=== PATIENT | female | born 1930 | race Caucasian/White ===

== ENCOUNTER 2017-09-19 12:22 | Inpatient (IN) | payer MEDICARE, BC ==
--- NOTE | 2017-09-19 12:46 | ED ---
Neuro HPI - General Chief Complaint: Neuro Symptoms/Deficit Stated Complaint: Hand Numbness-poss stroke on tuesday Time Seen by Provider: 09/19/17 12:34 Source: patient, RN notes reviewed Mode of arrival: wheelchair Limitations: no limitations - History of Present Illness Is the patient presenting with stroke symptoms?: Yes Initial Comments: This is a 86-year-old female who presents with complaints of the onset of left upper extremity weakness 3 days ago. She states she still has some numbness to the left hand especially when she tries to reach for something. This morning she did have a right orbital headache which went away after taking aspirin. She 's had no fevers chills nausea vomiting sweats no trauma no prior history of strokes no palpitations or other complaints of medical issues. She does have high blood pressureher medication. - Related Data Home Medications: Home Medications Medication Instructions Recorded Confirmed Aspirin EC [Ecotrin Low Dose] 81 mg PO DAILY 09/19/17 09/19/17 Atenolol [Tenormin] 50 mg PO DAILY 09/19/17 09/19/17 Atorvastatin [Lipitor] 20 mg PO HS 09/19/17 09/19/17 Calcium Polycarbophil [Fibercon] 625 mg PO DAILY 09/19/17 09/19/17 Losartan/Hydrochlorothiazide 0.5 tab PO DAILY 09/19/17 09/19/17 [Losartan-Hctz 100-25 mg Tab] [place]-3 Fatty Acids/Fish Oil [Fish 1 cap PO DAILY 09/19/17 09/19/17 Oil 1,000 mg Softgel] Omeprazole 20 mg PO DAILY 09/19/17 09/19/17 traMADol HCL [Ultram] 50 mg PO Q6HR PRN 09/19/17 09/19/17 Allergies/Adverse Reactions: Allergies Allergy/AdvReac Type Severity Reaction Status Date / Time No Known Allergies Allergy Verified 09/19/17 13:41 Review of Systems ROS Statement: Those systems with pertinent positive or pertinent negative responses have been documented in the HPI. ROS Other: All systems not noted in ROS Statement are negative. General Exam - General Exam Comments Initial Comments: This a well-developed well-nourished awake alert oriented 3 female Limitations: no limitations General appearance: alert, in no apparent distress Head exam: Present: atraumatic, normocephalic, normal inspection Eye exam: Present: normal appearance, PERRL, EOMI. Absent: scleral icterus, conjunctival injection, periorbital swelling ENT exam: Present: normal exam, mucous membranes moist Neck exam: Present: normal inspection. Absent: tenderness, meningismus, lymphadenopathy Respiratory exam: Present: normal lung sounds bilaterally. Absent: respiratory distress, wheezes, rales, rhonchi, stridor Cardiovascular Exam: Present: regular rate, normal rhythm, normal heart sounds. Absent: systolic murmur, diastolic murmur, rubs, gallop, clicks GI/Abdominal exam: Present: soft, normal bowel sounds. Absent: distended, tenderness, guarding, rebound, rigid Extremities exam: Present: normal inspection, normal capillary refill, other ( Some past pointing noted on the left upper extremity). 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 Absent: rash Stroke MDM - Lab Data Result diagrams: 09/19/17 12:50 09/19/17 12:50 Lab Results 09/19/17 09/19/17 09/19/17 Range/Units 12:50 12:50 12:50 WBC 6.1 (3.8-10.6) k/uL RBC 4.25 (3.80-5.40) m/uL Hgb 13.5 (11.4-16.0) gm/dL Hct 40.3 (34.0-46.0) % MCV 94.8 (80.0-100.0) fL MCH 31.8 (25.0-35.0) pg MCHC 33.6 (31.0-37.0) g/dL RDW 13.0 (11.5-15.5) % Plt Count 184 (150-450) k/uL Neutrophils % 62 % Lymphocytes % 25 % Monocytes % 8 % Eosinophils % 2 % Basophils % 0 % Neutrophils # 3.7 (1.3-7.7) k/uL Lymphocytes # 1.5 (1.0-4.8) k/uL Monocytes # 0.5 (0-1.0) k/uL Eosinophils # 0.1 (0-0.7) k/uL Basophils # 0.0 (0-0.2) k/uL PT (9.0-12.0) sec INR (<1.2) APTT (22.0-30.0) sec Sodium 144 (137-145) mmol/L Potassium 4.2 (3.5-5.1) mmol/L Chloride 107 (98-107) mmol/L Carbon Dioxide 24 (22-30) mmol/L Anion Gap 13 mmol/L BUN 20 H (7-17) mg/dL Creatinine 0.83 (0.52-1.04) mg/dL Est GFR (CKD-EPI)AfAm 75 (>60 ml/min/1.73 sqM) Est GFR (CKD-EPI)NonAf 65 (>60 ml/min/1.73 sqM) Glucose 98 (74-99) mg/dL Calcium 9.2 (8.4-10.2) mg/dL Total Bilirubin 1.3 (0.2-1.3) mg/dL AST 26 (14-36) U/L ALT 29 (9-52) U/L Alkaline Phosphatase 81 (38-126) U/L Total Creatine Kinase 115 (30-135) U/L CK-MB (CK-2) 1.5 (0.0-2.4) ng/mL CK-MB (CK-2) Rel Index 1.3 Troponin I <0.012 (0.000-0.034) ng/mL Total Protein 6.3 (6.3-8.2) g/dL Albumin 4.0 (3.5-5.0) g/dL 09/19/17 Range/Units 12:50 WBC (3.8-10.6) k/uL RBC (3.80-5.40) m/uL Hgb (11.4-16.0) gm/dL Hct (34.0-46.0) % MCV (80.0-100.0) fL MCH (25.0-35.0) pg MCHC (31.0-37.0) g/dL RDW (11.5-15.5) % Plt Count (150-450) k/uL Neutrophils % % Lymphocytes % % Monocytes % % Eosinophils % % Basophils % % Neutrophils # (1.3-7.7) k/uL Lymphocytes # (1.0-4.8) k/uL Monocytes # (0-1.0) k/uL Eosinophils # (0-0.7) k/uL Basophils # (0-0.2) k/uL PT 10.3 (9.0-12.0) sec INR 1.1 (<1.2) APTT 24.8 (22.0-30.0) sec Sodium (137-145) mmol/L Potassium (3.5-5.1) mmol/L Chloride (98-107) mmol/L Carbon Dioxide (22-30) mmol/L Anion Gap mmol/L BUN (7-17) mg/dL Creatinine (0.52-1.04) mg/dL Est GFR (CKD-EPI)AfAm (>60 ml/min/1.73 sqM) Est GFR (CKD-EPI)NonAf (>60 ml/min/1.73 sqM) Glucose (74-99) mg/dL Calcium (8.4-10.2) mg/dL Total Bilirubin (0.2-1.3) mg/dL AST (14-36) U/L ALT (9-52) U/L Alkaline Phosphatase (38-126) U/L Total Creatine Kinase (30-135) U/L CK-MB (CK-2) (0.0-2.4) ng/mL CK-MB (CK-2) Rel Index Troponin I (0.000-0.034) ng/mL Total Protein (6.3-8.2) g/dL Albumin (3.5-5.0) g/dL - NIH Stroke Scale 1a. Level of Consciousness: (0) alert 1b. LOC Questions: (0) answers correctly 1c. LOC Commands: (0) performs tasks correctly 2. Best Gaze: (0) normal 3. Visual: (0) no visual loss 4. Facial Palsy: (0) normal symmetrical movement 5a. Motor Arm Left: (0) no drift 5b. Motor Arm Right: (0) no drift 6a. Motor Leg Left: (0) no drift 6b. Motor Leg Right: (0) no drift 7. Limb Ataxia: (1) present 1 limb 8. Sensory: (0) normal 9. Best Language: (0) no aphasia 10. Dysarthria: (0) normal 11. Extinction/Inattention: (0) no abnormality - Medical Decision Making The patient remains minimally symptomatic the presentation consistent with a CVA she has had some ataxia to left upper extremity I did discuss the case with Dr. Ralph awad but the patient will be admitted for evaluation by neurology - EKG Data -: EKG Interpreted by [facility] EKG shows normal: sinus rhythm (Sinus bradycardia rate of 50. Interval 170 QRS duration 86 QT since QTC of 464/423 minimal voltage criteria for LVH nonspecific ST configuration) Past Medical History Past Medical History: Coronary Artery Disease (CAD), Hypertension History of Any Multi-Drug Resistant Organisms: None Reported Past Surgical History: Heart Catheterization With Stent, Joint Replacement Additional Past Surgical History / Comment(s): bilateral knee Past Psychological History: No Psychological Hx Reported Smoking Status: Never smoker Past Alcohol Use History: None Reported Past Drug Use History: None Reported Course Vital Signs 09/19/17 09/19/17 09/19/17 12:39 13:56 14:51 Temperature 97.7 F Pulse Rate 55 L 55 L 50 L Respiratory 20 16 16 Rate Blood Pressure 225/121 198/82 199/80 O2 Sat by Pulse 96 100 99 Oximetry Disposition Clinical Impression: Cerebrovascular accident Disposition: ADMITTED IP TO THIS HOSP Condition: Stable Referrals: Jatin Mcnair MD [Primary Care Provider] - 1-2 days
[2017-09-19 13:20] LABS: Basophils % (A) 0 %; Eosinophils # (A) 0.1 k/uL (0-0.7); Eosinophils % (A) 2 %; HCT 40.3 % (34.0-46.0); HGB 13.5 gm/dL (11.4-16.0); Lymphocytes # (A) 1.5 k/uL (1.0-4.8); Lymphocytes % (A) 25 %; MCH 31.8 pg (25.0-35.0); MCHC 33.6 g/dL (31.0-37.0); MCV 94.8 fL (80.0-100.0); Mean Platelet Volume 7.5; Monocytes # (A) 0.5 k/uL (0-1.0); Monocytes % (A) 8 %; Neutrophils # (A) 3.7 k/uL (1.3-7.7); Neutrophils % (A) 62 %; Platelet Count 184 k/uL (150-450); RBC 4.25 m/uL (3.80-5.40); WBC 6.1 k/uL (3.8-10.6)
--- NOTE | 2017-09-19 13:20 | CT ---
EXAMINATION TYPE: CT brain wo con for TPA DATE OF EXAM: 09/19/2017 HISTORY: Patient complains of left arm numbness. CT DLP: 769.3 mGycm. Automated Exposure Control for Dose Reduction was Utilized. TECHNIQUE: CT scan of the head is performed without contrast. COMPARISON: None. FINDINGS: There is no acute intracranial hemorrhage or midline shift identified. There is diffuse v entricular and sulcal prominence consistent with diffuse age-related cerebral atrophy. There is low- attenuation in the periventricular white matter consistent with chronic small vessel ischemic change. The globes are intact and the visualized sinuses are clear. IMPRESSION: No acute intracranial hemorrhage or midline shift. There is mild to moderate diffuse ag e-related cerebral atrophy and chronic small vessel ischemic change noted.
--- NOTE | 2017-09-19 13:25 | XR ---
EXAMINATION TYPE: XR chest 2V DATE OF EXAM: 09/19/2017 COMPARISON: 01/10/2012 INDICATION: Altered mental status TECHNIQUE: Frontal and lateral views of the chest are obtained. FINDINGS: The heart size is upper limits of normal. The pulmonary vasculature is normal. The lungs are clear. IMPRESSION: 1. No acute pulmonary process.
[2017-09-19 13:30] LABS: Calcium 9.2 mg/dL (8.4-10.2); Potassium 4.2 mmol/L (3.5-5.1); Total Bilirubin 1.3 mg/dL (0.2-1.3); Total Protein 6.3 g/dL (6.3-8.2)
[2017-09-19 13:31] LABS: INR 1.1 (<1.2); Partial Thromboplastin Time 24.8 sec (22.0-30.0); Prothrombin Time 10.3 sec (9.0-12.0)
[2017-09-19 13:40] LABS: Creatine Kinase 115 U/L (30-135)
[2017-09-19 13:53] LABS: Creatine Kinase MB 1.5 ng/mL (0.0-2.4); Troponin I <0.012 ng/mL (0.000-0.034)
[2017-09-19] MEDS ORDERED: cloNIDine HCL 0.1 MG TAB PO STA (15:16)
[2017-09-19] MEDS ORDERED: traMADol 50 MG TAB PO PRN (15:37)
--- NOTE | 2017-09-19 15:38 | ED ---
Medical Decision Making - Lab Data Result diagrams: 09/19/17 12:50 09/19/17 12:50 Lab Results 09/19/17 09/19/17 09/19/17 Range/Units 12:50 12:50 12:50 WBC 6.1 (3.8-10.6) k/uL RBC 4.25 (3.80-5.40) m/uL Hgb 13.5 (11.4-16.0) gm/dL Hct 40.3 (34.0-46.0) % MCV 94.8 (80.0-100.0) fL MCH 31.8 (25.0-35.0) pg MCHC 33.6 (31.0-37.0) g/dL RDW 13.0 (11.5-15.5) % Plt Count 184 (150-450) k/uL Neutrophils % 62 % Lymphocytes % 25 % Monocytes % 8 % Eosinophils % 2 % Basophils % 0 % Neutrophils # 3.7 (1.3-7.7) k/uL Lymphocytes # 1.5 (1.0-4.8) k/uL Monocytes # 0.5 (0-1.0) k/uL Eosinophils # 0.1 (0-0.7) k/uL Basophils # 0.0 (0-0.2) k/uL PT (9.0-12.0) sec INR (<1.2) APTT (22.0-30.0) sec Sodium 144 (137-145) mmol/L Potassium 4.2 (3.5-5.1) mmol/L Chloride 107 (98-107) mmol/L Carbon Dioxide 24 (22-30) mmol/L Anion Gap 13 mmol/L BUN 20 H (7-17) mg/dL Creatinine 0.83 (0.52-1.04) mg/dL Est GFR (CKD-EPI)AfAm 75 (>60 ml/min/1.73 sqM) Est GFR (CKD-EPI)NonAf 65 (>60 ml/min/1.73 sqM) Glucose 98 (74-99) mg/dL Calcium 9.2 (8.4-10.2) mg/dL Total Bilirubin 1.3 (0.2-1.3) mg/dL AST 26 (14-36) U/L ALT 29 (9-52) U/L Alkaline Phosphatase 81 (38-126) U/L Total Creatine Kinase 115 (30-135) U/L CK-MB (CK-2) 1.5 (0.0-2.4) ng/mL CK-MB (CK-2) Rel Index 1.3 Troponin I <0.012 (0.000-0.034) ng/mL Total Protein 6.3 (6.3-8.2) g/dL Albumin 4.0 (3.5-5.0) g/dL 09/19/17 Range/Units 12:50 WBC (3.8-10.6) k/uL RBC (3.80-5.40) m/uL Hgb (11.4-16.0) gm/dL Hct (34.0-46.0) % MCV (80.0-100.0) fL MCH (25.0-35.0) pg MCHC (31.0-37.0) g/dL RDW (11.5-15.5) % Plt Count (150-450) k/uL Neutrophils % % Lymphocytes % % Monocytes % % Eosinophils % % Basophils % % Neutrophils # (1.3-7.7) k/uL Lymphocytes # (1.0-4.8) k/uL Monocytes # (0-1.0) k/uL Eosinophils # (0-0.7) k/uL Basophils # (0-0.2) k/uL PT 10.3 (9.0-12.0) sec INR 1.1 (<1.2) APTT 24.8 (22.0-30.0) sec Sodium (137-145) mmol/L Potassium (3.5-5.1) mmol/L Chloride (98-107) mmol/L Carbon Dioxide (22-30) mmol/L Anion Gap mmol/L BUN (7-17) mg/dL Creatinine (0.52-1.04) mg/dL Est GFR (CKD-EPI)AfAm (>60 ml/min/1.73 sqM) Est GFR (CKD-EPI)NonAf (>60 ml/min/1.73 sqM) Glucose (74-99) mg/dL Calcium (8.4-10.2) mg/dL Total Bilirubin (0.2-1.3) mg/dL AST (14-36) U/L ALT (9-52) U/L Alkaline Phosphatase (38-126) U/L Total Creatine Kinase (30-135) U/L CK-MB (CK-2) (0.0-2.4) ng/mL CK-MB (CK-2) Rel Index Troponin I (0.000-0.034) ng/mL Total Protein (6.3-8.2) g/dL Albumin (3.5-5.0) g/dL Disposition Clinical Impression: Cerebrovascular accident, Hypertension Disposition: ADMITTED IP TO THIS HOSP Condition: Stable Referrals: Jatin Mcnair MD [Primary Care Provider] - 1-2 days
[2017-09-19] MEDS ORDERED: SODIUM CHLORIDE 0.9% 1,000 ML IV SCH (15:45)
[2017-09-19] MEDS ORDERED: PNEUMOCOCCAL VACC-PNEUMOVAX 23 25 MCG/0.5 ML VIAL IM ONE (16:59)
--- NOTE | 2017-09-19 18:37 | US ---
EXAMINATION TYPE: US carotid duplex BILAT DATE OF EXAM: 09/19/2017 COMPARISON: NONE CLINICAL HISTORY: Stenosis. Left arm numbness EXAM MEASUREMENTS: RIGHT: Peak Systolic Velocity (PSV) cm/sec ----- Right CCA: 42.1 ----- Right ICA: 165.5 ----- Right ECA: 42.9 ICA/CCA ratio: 3.9 RIGHT: End Diastole cm/sec ----- Right CCA: 8.5 ----- Right ICA: 33.6 ----- Right ECA: 0.0 LEFT: Peak Systolic Velocity (PSV) cm/sec ----- Left CCA: 51.0 ----- Left ICA: 76.6 ----- Left ECA: 45.8 ICA/CCA ratio: 1.5 LEFT: End Diastole cm/sec ----- Left CCA: 5.6 ----- Left ICA: 18.5 ----- Left ECA: 0.0 VERTEBRALS (direction of flow): Right Vertebral: Antegrade Left Vertebral: Antegrade Rhythm: Normal Technically difficult study due to deep vessels Bilateral intimal thickening, plaque bilateral bulb and proximal ICA greater on right, elevated veloc ities: right proximal mid and distal ICA, right ICA/CCA ratio 3.9 for 50 to 69% stenosis. IMPRESSION: There is antegrade flow in the vertebral arteries. The images and measurements suggest 7 0% stenosis in the right internal carotid artery and close to 50% stenosis in the left internal carot id artery. Criteria for Assigning % of Stenosis / Diameter reduction (Estimation based on the indirect measurements of the internal carotid artery velocities (ICA PSV). 1. Normal (no stenosis)=ICA PSV < 125 cm/s: ratio < 2.0: ICA EDV<40 cm/s. 2. Less than 50% stenosis=ICA PSV < 125 cm/s: ratio < 2.0: ICA EDV<40 cm/s. 3. 50 to 69% stenosis=ICA PSV of 125 to 230 cm/s: ration 2.0 ? 4.0: ICA EDV 40-100 cm/s. 4. Greater than 70% stenosis to near occlusion= ICA PSV > 230 cm/s: ratio > 4.0: ICA EDV > 100 cm/s. 5. Near occlusion= ICA PSV velocities may be low or undetectable: variable ratio and ICA EDV. 6. Total occlusion=unable to detect flow.
[2017-09-19] MEDS: ATORVASTATIN 20 MG TAB PO SCH (20:28)
[2017-09-20 03:23] LABS: Cholesterol 122 mg/dL (<200); HDL Cholesterol 51 mg/dL (40-60); LDL Cholesterol,Calculated 49 mg/dL (0-99); Triglycerides 111 mg/dL (<150)
[2017-09-20] MEDS ORDERED: ASPIRIN 81 MG ONE (05:10)
[2017-09-20] MEDS: ASPIRIN 81 MG PO SCH (05:14)
[2017-09-20] MEDS: PANTOPRAZOLE 40 MG TABLET PO SCH (05:15)
[2017-09-20] MEDS: CALCIUM POLYCARBOPHIL 625 MG TAB PO SCH (07:52)
[2017-09-20] MEDS: ATENOLOL 50 MG TAB PO SCH (07:53)
[2017-09-20] MEDS: CLOPIDOGREL 75 MG TAB PO SCH (07:53)
[2017-09-20] MEDS ORDERED: ASPIRIN 325 MG TAB PO SCH (09:00)
[2017-09-20] MEDS ORDERED: LOSARTAN-HCTZ 50-12.5 MG 1 EACH TAB PO SCH (09:00)
[2017-09-20] MEDS ORDERED: NON-FORMULARY DRUG (Omega-3 Fatty Acids/Fish Oil [Fish Oil 1,000 Mg Softgel] 1 CAP) PO SCH (09:00)
--- NOTE | 2017-09-20 14:01 | CONS ---
DATE OF CONSULTATION: 09/20/2017 This is 86-year-old pleasant female. She had an episode of left upper extremity weakness that happened on Tuesday with complete recovery. She complained of some numbness in the left hand. She also had orbital headache which went away after taking some aspirin. No history of any loss of vision. No history of speech problem. No history of left leg weakness. This is our first episode. The patient had a carotid ultrasound which showed a right has 50 to 69, left-sided 50%, vertebral artery antegrade. The patient had a CT of the brain. No hemorrhage, normal shift, no infarction noted. MEDICAL HISTORY: History of coronary artery disease, hypertension. EXAMINATION: Patient was seen in her room. Her vital signs are stable. NECK: Supple. No bruit appreciated. CHEST: Clear to auscultation. First and second sounds normal. ABDOMEN: Soft. VASCULAR EXAM: Femoral pulses are present. CENTRAL NERVOUS SYSTEM: Oriented to time and place. The patient has motor functions normal bilateral and lower extremities are normal motor function. IMPRESSION: Transient ischemic attack with right carotid stenosis of [address] scan negative for intracranial bleed or hemorrhage. The patient is scheduled to have MRA and we will follow with you. The patient should be on antiplatelet therapy and statin medication. We will follow with you. Thank you very much. MMODL / IJN: [id number] / [id number]
--- NOTE | 2017-09-20 16:24 | P.CONS ---
History of Present Illness - Reason for Consult Consult date: 09/20/17 CVA - Chief Complaint CVA - History of Present Illness This pleasant 86-year-old female evaluated by the neurology service for possible stroke. About 3 days ago she developed left upper extremity weakness and numbness. Did get a little better but persisted. She reported to the [facility] emergency room with no other symptoms except a mild right orbital headache. This resolved after taking some aspirin. Her CT in the emergency room showed no acute intracranial abnormalities. Her carotid Doppler did show anterograde vertebral artery flow. She has 70% right internal carotid artery stenosis of about 50% left sided stenosis. Consult has been placed cardiovascular evaluation. She does have a significant history of atherosclerotic cardiovascular disease. She had stent placement. She takes a baby aspirin a day. Her presenting blood pressure was quite high peaking at 225 /121. This time my exam she is resting comfortably in bed in no acute distress. Her triglycerides were 111 cholesterol 122 LDL 49 and HDL 51 otherwise her labs were unremarkable. 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, chronic back pain History of Any Multi-Drug Resistant Organisms: None Reported Past Surgical History: Heart Catheterization With Stent, Joint Replacement Additional Past Surgical History / Comment(s): bilateral knee replacment, colonoscopy 2011, skin cancer removed from face Past Anesthesia/Blood Transfusion Reactions: No Reported Reaction Additional Past Anesthesia/Blood Transfusion Reaction / Comm: never received any blood Date of Last Stent Placement:: 2011 Smoking Status: Never smoker - Past Family History Mother Family Medical History: Deep Vein Thrombosis (DVT) Additional Family Medical History / Comment(s): thrombophlebitis Father Additional Family Medical History / Comment(s): Father was killed in mva Medications and Allergies Home Medications Medication Instructions Recorded Confirmed Type Aspirin EC [Ecotrin Low Dose] 81 mg PO DAILY 09/19/17 09/19/17 History Atenolol [Tenormin] 50 mg PO DAILY 09/19/17 09/19/17 History Atorvastatin [Lipitor] 20 mg PO HS 09/19/17 09/19/17 History Calcium Polycarbophil [Fibercon] 625 mg PO DAILY 09/19/17 09/19/17 History Losartan/Hydrochlorothiazide 0.5 tab PO DAILY 09/19/17 09/19/17 History [Losartan-Hctz 100-25 mg Tab] [place]-3 Fatty Acids/Fish Oil [Fish 1 cap PO DAILY 09/19/17 09/19/17 History Oil 1,000 mg Softgel] Omeprazole 20 mg PO DAILY 09/19/17 09/19/17 History traMADol HCL [Ultram] 50 mg PO Q6HR PRN 09/19/17 09/19/17 History Allergies Allergy/AdvReac Type Severity Reaction Status Date / Time No Known Allergies Allergy Verified 09/19/17 13:41 Physical Exam Vitals: Vital Signs Temp Pulse Pulse Resp BP BP Pulse Ox 09/20/17 16:00 98.4 F 63 18 141/65 93 L 09/20/17 12:00 98 F 58 L 18 134/64 94 L 09/20/17 08:00 58 L 18 09/20/17 07:59 97.3 F L 58 L 18 150/70 93 L 09/20/17 07:04 92 L 09/20/17 04:15 55 L 17 09/20/17 04:10 98.5 F 50 L 17 165/76 95 09/20/17 00:00 97.8 F 55 L 18 140/66 95 09/19/17 20:20 98.0 F 51 L 18 130/60 95 09/19/17 17:36 97.6 F 62 18 137/62 94 L 09/19/17 16:07 52 L 16 163/72 98 Intake and Output 09/20/17 09/20/17 09/20/17 06:59 14:59 22:59 Intake Total 490 360 Output Total 400 Balance 490 -40 Intake: IV 10 0.9 10 Oral 480 360 Output: Urine 400 Other: Voiding Method Toilet Toilet Toilet # Voids 2 Weight 83.4 kg - Constitutional General appearance: average body habitus, cooperative, no acute distress - EENT Eyes: no abnormal pupil, EOMI, PERRLA, no ptosis ENT: hearing grossly normal - Neck Neck: normal ROM, no rigidity - Respiratory Respiratory: negative: prolonged expiration, prolonged inspiration - Cardiovascular Rhythm: regular - Gastrointestinal General gastrointestinal: no distended, no tenderness - Neurologic The patient is alert awake and oriented 3. Speech and language are normal. There is no facial asymmetry. Strength is 5 minus out of 5 in the left upper extremity and 5 out of 5 in the other extremities. Mild left pronator drift. She has mild to moderate left sided dysmetria. There is no sensory deficit. No tremors or seizures are seen. Cranial nerves II through XII are intact globally. Results CBC & Chem 7: 09/19/17 12:50 09/19/17 12:50 Assessment and Plan (1) Left arm weakness Current Visit: Yes Status: Acute Code(s): R29.898 - OTH SYMPTOMS AND SIGNS INVOLVING THE MUSCULOSKELETAL SYSTEM SNOMED Code(s): 674194255 (2) Dysmetria Current Visit: Yes Status: Acute Code(s): R27.8 - OTHER LACK OF COORDINATION SNOMED Code(s): 15009467 (3) Carotid stenosis Current Visit: Yes Status: Chronic Code(s): I65.29 - OCCLUSION AND STENOSIS OF UNSPECIFIED CAROTID ARTERY SNOMED Code(s): 96908272 (4) Hyperlipidemia Current Visit: Yes Status: Chronic Code(s): E78.5 - HYPERLIPIDEMIA, UNSPECIFIED SNOMED Code(s): 28646836 (5) History of ASCVD Current Visit: Yes Status: Chronic Code(s): Z86.79 - PERSONAL HISTORY OF OTHER DISEASES OF THE CIRCULATORY SYSTEM SNOMED Code(s): 348808150 (6) Cerebrovascular accident Current Visit: Yes Status: Suspected Code(s): I63.9 - CEREBRAL INFARCTION, UNSPECIFIED SNOMED Code(s): 754925660 (7) Hypertension Current Visit: Yes Status: Chronic Code(s): I10 - ESSENTIAL (PRIMARY) HYPERTENSION SNOMED Code(s): 43379194 Plan: This patient has likely suffered an acute ischemic stroke of the right middle cerebral artery distribution. An MRI has been ordered. Recommend physical and occupational therapy continue work with her. Recommend cardiovascular evaluation for her carotid stenosis. Recommend strict blood control. Recommend switching from aspirin to Plavix 75 mg daily. Once we confirmed MRI findings to support the above diagnosis, we will change this medication if not already done. Continue Lipitor at appropriate dose. We will continue to follow and make recommendations based on the above studies. I have performed a history and physical on the above patient. I have reviewed the above note, and agree.
[2017-09-20] MEDS: ATORVASTATIN 20 MG TAB PO SCH (21:06)
[2017-09-20] MEDS ORDERED: LOSARTAN-HCTZ 50-12.5 MG 1 EACH TAB PO STA (21:26)
[2017-09-21] MEDS: PANTOPRAZOLE 40 MG TABLET PO SCH (06:46)
--- NOTE | 2017-09-21 08:01 | P.HPIM ---
History of Present Illness H&P Date: 09/20/17 Chief Complaint: Numbness This is an 86-year-old female patient of Dr. 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 She denies having dizziness, lightheadedness , difficulty with her speech, weakness in her lower extremities. She denies any numbness in her left arm as well. She states that it just drops Patient presented to [facility] emergency center with the above complaints. Patient was hypertensive at 225/121. She was given a dose of Catapres 0.1 mg orally with improvement of her blood pressure and subsequent way resumed on her home medications. CT of the brain showed no acute intracranial hemorrhage or midline shift. Mild to moderate diffuse age-related cerebral atrophy and chronic small vessel ischemic change. Chest x-ray showed no acute process. Carotid duplex revealed 70% stenosis in the right internal carotid and close to 50% in the left internal carotid. Patient was resumed on her home medications, continued on baby aspirin and Plavix added, consult requested with neurology and patient admitted to the selective care unit. PT OT and speech therapies have been ordered. Subsequently, consult placed with Dr. Patricio for carotid stenosis. Review of Systems All systems: negative Constitutional: Denies chills, Denies fatigue, Denies fever, Denies poor appetite, Denies weight loss Eyes: denies blurred vision, denies pain Ears, nose, mouth and throat: Reports headache, Denies dental pain, Denies dysphagia, Denies mouth pain, Denies sore throat Cardiovascular: Denies chest pain, Denies decreased exercise tolerance, Denies dyspnea on exertion, Denies leg edema, Denies lightheadedness, Denies shortness of breath, Denies syncope Respiratory: Denies cough, Denies cough with sputum, Denies dyspnea, Denies excessive sputum, Denies hemoptysis, Denies home oxygen, Denies wheezing Gastrointestinal: Denies abdominal pain, Denies diarrhea, Denies loss of appetite, Denies melena, Denies nausea, Denies vomiting Genitourinary: Denies dysuria, Denies hematuria, Denies urgency, Denies urinary frequency Musculoskeletal: Reports muscle weakness, Denies arm numbness/tingling, Denies frequent falls, Denies gait dysfunction, Denies leg numbness/tingling, Denies myalgias Integumentary: Denies pruritus, Denies rash, Denies wounds Neurological: Reports numbness, Reports weakness, Denies aphasia, Denies change in mentation, Denies change in speech, Denies confusion, Denies convulsions, Denies double vision, Denies gait dysfunction, Denies vertigo Psychiatric: Denies anxiety, Denies depression Endocrine: Denies fatigue, Denies weight change Past Medical History Past Medical History: Coronary Artery Disease (CAD), Cancer, GERD/Reflux, Hyperlipidemia, Hypertension Additional Past Medical History / Comment(s): uti, past broken lt ankle-casted, basal cell skin ca on face, chronic back pain History of Any Multi-Drug Resistant Organisms: None Reported Past Surgical History: Heart Catheterization With Stent, Joint Replacement Additional Past Surgical History / Comment(s): bilateral knee replacment, colonoscopy 2011, skin cancer removed from face Past Anesthesia/Blood Transfusion Reactions: No Reported Reaction Additional Past Anesthesia/Blood Transfusion Reaction / Comment(s): never received any blood Date of Last Stent Placement:: 2011 Smoking Status: Never smoker Additional Past Alcohol Use History / Comment(s): Patient is a lifelong nonsmoker. She denies any marijuana street drug use or alcohol use. - Past Family History Mother Family Medical History: Deep Vein Thrombosis (DVT) Additional Family Medical History / Comment(s): thrombophlebitis. Patient states that mother may have had a stroke in her 40s. Father Additional Family Medical History / Comment(s): Father was killed in mva Brother(s) Additional Family Medical History / Comment(s): Patient has 13 brothers and sisters and all have had diabetes. 2 of from diabetes complications. Patient has 2 daughters with no major medical problems. Medications and Allergies Home Medications Medication Instructions Recorded Confirmed Type Aspirin EC [Ecotrin Low Dose] 81 mg PO DAILY 09/19/17 09/19/17 History Atenolol [Tenormin] 50 mg PO DAILY 09/19/17 09/19/17 History Atorvastatin [Lipitor] 20 mg PO HS 09/19/17 09/19/17 History Calcium Polycarbophil [Fibercon] 625 mg PO DAILY 09/19/17 09/19/17 History Losartan/Hydrochlorothiazide 0.5 tab PO DAILY 09/19/17 09/19/17 History [Losartan-Hctz 100-25 mg Tab] [place]-3 Fatty Acids/Fish Oil [Fish 1 cap PO DAILY 09/19/17 09/19/17 History Oil 1,000 mg Softgel] Omeprazole 20 mg PO DAILY 09/19/17 09/19/17 History traMADol HCL [Ultram] 50 mg PO Q6HR PRN 09/19/17 09/19/17 History Allergies Allergy/AdvReac Type Severity Reaction Status Date / Time No Known Allergies Allergy Verified 09/19/17 13:41 Physical Exam Vitals: Vital Signs Temp Pulse Pulse Resp BP BP Pulse Ox 09/20/17 08:00 58 L 18 09/20/17 07:59 97.3 F L 58 L 18 150/70 93 L 09/20/17 07:04 92 L 09/20/17 04:15 55 L 17 09/20/17 04:10 98.5 F 50 L 17 165/76 95 09/20/17 00:00 97.8 F 55 L 18 140/66 95 09/19/17 20:20 98.0 F 51 L 18 130/60 95 09/19/17 17:36 97.6 F 62 18 137/62 94 L 09/19/17 16:07 52 L 16 163/72 98 09/19/17 14:51 50 L 16 199/80 99 09/19/17 13:56 55 L 16 198/82 100 09/19/17 12:39 97.7 F 55 L 20 225/121 96 Intake and Output 09/19/17 09/20/17 09/20/17 22:59 06:59 14:59 Intake Total 237 490 Balance 237 490 Intake: IV 10 0.9 10 Oral 237 480 Other: Voiding Method Toilet Toilet Toilet # Voids 2 Weight 83.4 kg Gen: This is an obese 86-year-old female. Patient is awake and alert. She is sitting up in bed and appears to be in no acute distress. HEENT: Head is atraumatic, normocephalic. Pupils equal, round. Sclerae is anicteric. NECK: Supple. No JVD. No lymphadenopathy. No thyromegaly. LUNGS: Clear to auscultation. No wheezes or rhonchi. No intercostal retractions. HEART: Regular rate and rhythm. No murmur. ABDOMEN: Soft. Bowel sounds are present. No masses. No tenderness. EXTREMITIES: No pedal edema. No calf tenderness. NEUROLOGICAL: Patient is awake, alert and oriented x3. Cranial nerves 2 through 12 are grossly intact. Left arm drift. Left upper extremity 4/5 strength and 5 /5 on right upper extremity and bilateral lower extremities Results CBC & Chem 7: 09/19/17 12:50 09/19/17 12:50 Labs: Abnormal Lab Results - Last 24 Hours (Table) 09/19/17 Range/Units 12:50 BUN 20 H (7-17) mg/dL Thrombosis Risk Factor Assmnt - DVT/VTE Prophylaxis DVT/VTE Prophylaxis: Pharmacologic Prophylaxis ordered - Choose All That Apply Each Factor Represents 1 point: Obesity (BMI >25) Each Risk Factor Represents 3 Points: Age 75 years or older Thrombosis Risk Factor Assessment Total Risk Factor Score: 4 Thrombosis Risk Factor Assessment Level: Moderate Risk Assessment and Plan Plan: 1. TIA but CVA not completely ruled out. Consult with Dr. Wood. Continue aspirin 81 mg daily and Plavix 75 mg daily. PT, OT, speech therapy evaluations. Continue Lipitor for secondary prevention. MRI of the brain ordered 2. Accelerated hypertension. Continue atenolol 50 mg daily, Hyzaar daily. 3. Carotid stenosis was 70% on the right and 50% on the left. Consult with Dr. Patricio. 4. Hyperlipidemia. Continue Lipitor. 5. Gastroesophageal reflux disease and GI prophylaxis. Continue omeprazole or equivalent. 6. History of coronary artery disease status post cardiac stent, stable. No signs of chest pain. Continue aspirin, Lipitor, atenolol. 7. Chronic back pain. Continue tramadol as needed. 8. Gastritis prophylaxis. Protonix. Patient will be admitted to the hospital for a minimum of 2 night stay. Discharge plan: Most likely return home possibly with homecare Impression and plan of care have been directed as dictated by the signing physician. Marlen Dillard nurse practitioner acting as scribe for signing physician.
[2017-09-21] MEDS: ASPIRIN 81 MG PO SCH (08:39)
[2017-09-21] MEDS: CALCIUM POLYCARBOPHIL 625 MG TAB PO SCH (08:40)
[2017-09-21] MEDS: CLOPIDOGREL 75 MG TAB PO SCH (08:40)
[2017-09-21] MEDS: ATENOLOL 50 MG TAB PO SCH (08:40)
[2017-09-21] MEDS: LOSARTAN-HCTZ 50-12.5 MG 1 EACH TAB PO SCH (08:41)
--- NOTE | 2017-09-21 11:53 | ECHOF ---
Referral Reason:LVF, tia MEASUREMENTS -------- HEIGHT: 162.6 cm WEIGHT: 83.0 kg BP: IVSd: 1.7 cm (0.6 - 1.1) LVIDd: 3.4 cm (3.9 - 5.3) LVPWd: 1.8 cm (0.6 - 1.1) IVSs: 2.2 cm LVIDs: 1.8 cm LVPWs: 1.8 cm LAESV Index (A-L): 32.91 ml/m Ao Diam: 3.1 cm (2.0 - 3.7) AV Cusp: 1.6 cm (1.5 - 2.6) LA Diam: 3.9 cm (2.7 - 3.8) MV EXCURSION: 13.189 mm (> 18.000) MV EF SLOPE: 37 mm/s (70 - 150) EPSS: 0.7 cm MV E Ethan: 0.67 m/s MV DecT: 271 ms MV A Ethan: 0.91 m/s MV E/A Ratio: 0.73 AR PHT: 469 ms RAP: 5.00 mmHg RVSP: 17.04 mmHg FINDINGS -------- Sinus rhythm. This was a technically good study. The left ventricular size is normal. There is moderate concentric left ventricular hypertrophy. L eft ventricular systolic function is hyperdynamic with an estimated EF of >70%. The right ventricle is normal in size and function. The left atrium is normal in size. The right atrium is normal in size. Aortic valve is trileaflet and is mildly thickened. There is mild aortic regurgitation. The mitral valve leaflets are mildly thickened. Mild mitral annular calcification present. Mild m itral regurgitation is present. Mild tricuspid regurgitation present. The right ventricular systolic pressure, as measured by Doppl er, is 17.04mmHg. Pulmonic valve appears structurally normal. The aortic root size is normal. Normal inferior vena cava with normal inspiratory collapse consistent with estimated right atrial pre ssure of 5 mmHg. Echo free space indicative of a pericardial fat pad. CONCLUSIONS -------- 1. Sinus rhythm. 2. This was a technically good study. 3. The left ventricular size is normal. 4. There is moderate concentric left ventricular hypertrophy. 5. Left ventricular systolic function is hyperdynamic with an estimated EF of >70%. 6. The right ventricle is normal in size and function. 7. The left atrium is normal in size. 8. The right atrium is normal in size. 9. Aortic valve is trileaflet and is mildly thickened. 10. There is mild aortic regurgitation. 11. The mitral valve leaflets are mildly thickened. 12. Mild mitral annular calcification present. 13. Mild mitral regurgitation is present. 14. Mild tricuspid regurgitation present. 15. The right ventricular systolic pressure, as measured by Doppler, is 17.04mmHg. 16. Pulmonic valve appears structurally normal. 17. The aortic root size is normal. 18. Normal inferior vena cava with normal inspiratory collapse consistent with estimated right atrial pressure of 5 mmHg. 19. Echo free space indicative of a pericardial fat pad. BACKUP ENGINEER: Arlene Fields RDCS
--- NOTE | 2017-09-21 12:14 | MR ---
EXAMINATION TYPE: MR brain wo/w con DATE OF EXAM: 09/21/2017 COMPARISON: CT brain from 2 days ago. HISTORY: TIA, admitted 2 days earlier for neuro deficits and/or left arm numbness. TECHNIQUE: Multiplanar, multisequence images of the brain and brainstem is performed without and with IV contras t, utilizing 7.5 mL intravenous Gadavist . FINDINGS: Diffusion weighted images demonstrate subcortical foci of increased signal on diffusion tone ghted images and diminished signal on ADC mapping with T2 hyperintensity felt to reflect areas of acu te infarct involving right frontal and parietal lobes from level of coronal radiata extending superio rly. No left-sided involvement is seen. There is background ventricular and sulcal prominence. There is background multifocal areas of T2 hyp erintensity seen throughout the deep and periventricular white matter. Midline structures demonstrate normal morphology. The craniocervical junction appears within normal limits. Post contrast images demonstrate no abnormal enhancement. The dural venous sinuses appear pa tent. The visualized sinuses are clear and the globes are intact. Nasal septum is deviated to right o f midline. IMPRESSION: 1. Multifocal areas of evolving acute right-sided frontal and parietal subcortical lacunar infarcts a ll measuring 5 mm or smaller in size on background of moderate diffuse cerebral atrophy and chronic s mall vessel ischemic change.
--- NOTE | 2017-09-21 14:35 | P.PN ---
Subjective Progress Note Date: 09/21/17 This is an 86-year-old female patient of Dr. 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 She denies having dizziness, lightheadedness , difficulty with her speech, weakness in her lower extremities. She denies any numbness in her left arm as well. She states that it just drops Patient presented to [facility] emergency center with the above complaints. Patient was hypertensive at 225/121. She was given a dose of Catapres 0.1 mg orally with improvement of her blood pressure and subsequent way resumed on her home medications. CT of the brain showed no acute intracranial hemorrhage or midline shift. Mild to moderate diffuse age-related cerebral atrophy and chronic small vessel ischemic change. Chest x-ray showed no acute process. Carotid duplex revealed 70% stenosis in the right internal carotid and close to 50% in the left internal carotid. Patient was resumed on her home medications, continued on baby aspirin and Plavix added, consult requested with neurology and patient admitted to the selective care unit. PT OT and speech therapies have been ordered. Subsequently, consult placed with Dr. Patricio for carotid stenosis. 09/21: Patient has been seen by physical therapy and occupational therapy. No plan for any further therapies. Echocardiogram reveals EF of greater than 70%, moderate concentric left hypertrophy, mild aortic regurgitation, mild mitral regurgitation, mild tricuspid regurgitation. Patient has been seen by Dr. Wood with recommendations for Plavix versus aspirin which patient has been on Lasix and was started by the ER. We are also increasing her Lipitor to 40 mg. Patient states she feels she has a little weakness in her left hand. Ship Engineer appeared to be even at this time. MRI of the brain reveals multifocal areas of evolving acute right-sided frontal and parietal subcortical lacunar infarcts all measuring 5 mm or smaller in size on background of moderate diffuse cerebral atrophy and chronic small vessel ischemic change. Patient does not have any history of atrial fibrillation. Will add in consult for cardiology. Patient is currently on Plavix and baby aspirin. Objective - Vital Signs Vital signs: Vital Signs Temp 97.5 F L 09/21/17 11:47 Pulse 57 L 09/21/17 11:47 Resp 18 09/21/17 11:47 BP 135/67 09/21/17 11:47 Pulse Ox 96 09/21/17 11:47 Intake & Output 09/20/17 09/21/17 09/21/17 18:59 06:59 18:59 Intake Total 600 600 Output Total 800 Balance -200 600 Weight 83 kg Intake: Oral 600 600 Output: Urine 800 Other: Voiding Method Toilet Toilet Toilet # Voids 1 - Exam Gen: This is an obese 86-year-old female. Patient is awake and alert. She is sitting up in bed and appears to be in no acute distress. HEENT: Head is atraumatic, normocephalic. Pupils equal, round. Sclerae is anicteric. NECK: Supple. No JVD. No lymphadenopathy. No thyromegaly. LUNGS: Clear to auscultation. No wheezes or rhonchi. No intercostal retractions. HEART: Regular rate and rhythm. No murmur. ABDOMEN: Soft. Bowel sounds are present. No masses. No tenderness. EXTREMITIES: No pedal edema. No calf tenderness. NEUROLOGICAL: Patient is awake, alert and oriented x3. Cranial nerves 2 through 12 are grossly intact. Left arm drift. Left upper extremity 4/5 strength and 5 /5 on right upper extremity and bilateral lower extremities - Labs CBC & Chem 7: 09/19/17 12:50 09/19/17 12:50 Assessment and Plan Plan: 1. Acute evolving right-sided frontal and parietal subcortical lacunar infarcts , ischemic CVA. Consult with Dr. Wood. Continue aspirin 81 mg daily and Plavix 75 mg daily. PT, OT, speech therapy evaluations in place. Continue Lipitor for secondary prevention and increased to 40 mg. MRI of the brain as above. Cardiology consult. Patient has no history of atrial fibrillation. 2. Accelerated hypertension. Continue atenolol 50 mg daily, Hyzaar daily. 3. Carotid stenosis was 70% on the right and 50% on the left. Consult with Dr. Patricio. 4. Hyperlipidemia. Continue Lipitor. 5. Gastroesophageal reflux disease and GI prophylaxis. Continue omeprazole or equivalent. 6. History of coronary artery disease status post cardiac stent, stable. No signs of chest pain. Continue aspirin, Lipitor, atenolol. 7. Chronic back pain. Continue tramadol as needed. 8. Gastritis prophylaxis. Protonix. Discharge plan: home Impression and plan of care have been directed as dictated by the signing physician. Marlen Dillard nurse practitioner acting as scribe for signing physician.
--- NOTE | 2017-09-21 16:04 | P.PN ---
Subjective Progress Note Date: 09/21/17 Principal diagnosis: Stroke Is a pleasant 86-year-old female continuing to be evaluated by the neurology service for stroke. Recall that her presenting symptoms were that of left upper extremity weakness and numbness. Her symptoms do persist. CT showed no acute intracranial abnormalities. Her carotid Doppler did show some stenosis for which she was being evaluated by cardiovascular invasive specialist. Recall that her blood pressure has been quite elevated also. MRI of the brain was done and showed multifocal areas of evolving acute right sided frontal and parietal subcortical lacunar infarcts. Also seen was chronic small vessel ischemic changes. She is on Plavix and Lipitor. She has had no new neurological symptoms since admission. At the time my exam she is resting comfortably in bed. Objective - Vital Signs Vital signs: Vital Signs Temp 97.5 F L 09/21/17 11:47 Pulse 57 L 09/21/17 11:47 Resp 18 09/21/17 11:47 BP 135/67 09/21/17 11:47 Pulse Ox 96 09/21/17 11:47 Intake & Output 09/20/17 09/21/17 09/21/17 18:59 06:59 18:59 Intake Total 600 600 Output Total 800 Balance -200 600 Weight 83 kg Intake: Oral 600 600 Output: Urine 800 Other: Voiding Method Toilet Toilet Toilet # Voids 1 3 # Bowel Movements 1 - Constitutional General appearance: Present: cooperative, no acute distress - EENT Eyes: Present: PERRLA. Absent: abnormal pupil, ptosis ENT: Present: hearing grossly normal - Neck Neck: Present: normal ROM. Absent: rigidity - Respiratory Respiratory: negative: prolonged expiration, prolonged inspiration - Cardiovascular Rhythm: regular - Gastrointestinal General gastrointestinal: Absent: distended, tenderness - Neurologic Neurologic Comment(s): The patient is alert awake and oriented 3. Speech and language are normal. There is no facial asymmetry. Strength is 5 minus out of 5 in the left upper extremity and 5 out of 5 in the remaining upper and lower extremities. There is no sensory deficit. No tremors or seizures are seen. Cranial nerves II through XII are intact globally. She has left-sided dysmetria and pronator drift.. - Labs CBC & Chem 7: 09/19/17 12:50 09/19/17 12:50 Assessment and Plan (1) Left arm weakness Current Visit: Yes Status: Acute Code(s): R29.898 - OTH SYMPTOMS AND SIGNS INVOLVING THE MUSCULOSKELETAL SYSTEM SNOMED Code(s): 078591279 (2) Dysmetria Current Visit: Yes Status: Acute Code(s): R27.8 - OTHER LACK OF COORDINATION SNOMED Code(s): 61766947 (3) Carotid stenosis Current Visit: Yes Status: Chronic Code(s): I65.29 - OCCLUSION AND STENOSIS OF UNSPECIFIED CAROTID ARTERY SNOMED Code(s): 52391092 (4) Hyperlipidemia Current Visit: Yes Status: Chronic Code(s): E78.5 - HYPERLIPIDEMIA, UNSPECIFIED SNOMED Code(s): 26194880 (5) History of ASCVD Current Visit: Yes Status: Chronic Code(s): Z86.79 - PERSONAL HISTORY OF OTHER DISEASES OF THE CIRCULATORY SYSTEM SNOMED Code(s): 635492345 (6) Cerebrovascular accident Current Visit: Yes Status: Acute Code(s): I63.9 - CEREBRAL INFARCTION, UNSPECIFIED SNOMED Code(s): 276211838 (7) Hypertension Current Visit: Yes Status: Chronic Code(s): I10 - ESSENTIAL (PRIMARY) HYPERTENSION SNOMED Code(s): 37479537 Plan: This patient has suffered multifocal right frontal and parietal lacunar infarcts. Given her significant cardiovascular history and findings of chronic small vessel disease this is likely a result of her underlying vascular disease. However, an embolic source cannot be totally ruled out. A transthoracic echocardiogram has already been accomplished and no mention of a thrombus was made. Consideration could be given to a transesophageal echocardiogram, we will leave this decision to cardiology. Recommend physical and occupational therapy continue work with her. Recommend continued cardiovascular evaluation for her carotid stenosis. Recommend strict blood pressure control. Continue Plavix 75 mg daily and Lipitor. We can be contacted on as-needed basis for any change in her neurological status. I have performed a history and physical on the above patient. I have reviewed the above note, and agree.
[2017-09-21] MEDS ORDERED: ATENOLOL 50 MG TAB PO STA (16:47)
[2017-09-21] MEDS ORDERED: hydrALAZINE HCL 20 MG/ML 1 ML VIAL IVP PRN (16:48)
[2017-09-21] MEDS ORDERED: ATORVASTATIN 40 MG TAB PO SCH (21:00)
[2017-09-22] MEDS ORDERED: diphenhydrAMINE 25 MG CAP PO STA (04:12)
[2017-09-22] MEDS ORDERED: ACETAMINOPHEN TAB 500 MG TAB PO PRN (04:12)
--- NOTE | 2017-09-22 07:42 | PN ---
PROGRESS NOTE This is an 86-year-old female. She came with history of left upper extremity weakness and numbness. Her CT scan showed no acute infarct. Ultrasound showed 50% to 69% stenosis of the right carotid artery. MRI of the brain showed patient has right -sided frontal and parietal subcortical lacunar infarct; also seen was chronic small vessel ischemic changes. The patient is on Plavix and her symptoms are improved. We will discuss with Medicine and __neaurolgy___ for further management. MMODL / IJN: [id number] / GABRIEL
[2017-09-22] MEDS ORDERED: ATENOLOL 50 MG TAB PO SCH ×2 (09:00→12:15)
[2017-09-22 11:06] VITALS: TEMP 97
[2017-09-22] MEDS: PANTOPRAZOLE 40 MG TABLET PO SCH (11:08)
[2017-09-22] MEDS: CLOPIDOGREL 75 MG TAB PO SCH (11:08)
[2017-09-22] MEDS: ASPIRIN 81 MG PO SCH (11:08)
[2017-09-22] MEDS: LOSARTAN-HCTZ 50-12.5 MG 1 EACH TAB PO SCH (11:08)
--- NOTE | 2017-09-22 11:16 | P.CRDCN ---
History of Present Illness History of present illness: Patient interviewed and examined. Presented with left upper extremity weakness with headache. No other neurologic symptoms. Awaiting BETTE Elevated blood pressure upon admission but the last blood pressure here 130/63 mmHg Known hypertension Watch for atrial fibrillation But the cone infarcts noted Nonobstructive CAD Lipid panel shows LDL of 49, HDL 51 and total cholesterol 122 triglycerides of 111 CAD Proceed with BETTE with primary cardio just, Dr. 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 She denies any marijuana street drug use or alcohol use. - Past Family History Mother Family Medical History: Deep Vein Thrombosis (DVT) Additional Family Medical History / Comment(s): thrombophlebitis. Patient states that mother may have had a stroke in her 40s. Father Additional Family Medical History / Comment(s): Father was killed in mva Brother(s) Additional Family Medical History / Comment(s): Patient has 13 brothers and sisters and all have had diabetes. 2 of from diabetes complications. Patient has 2 daughters with no major medical problems. Medications and Allergies Home Medications Medication Instructions Recorded Confirmed Type Aspirin EC [Ecotrin Low Dose] 81 mg PO DAILY 09/19/17 09/19/17 History Atenolol [Tenormin] 50 mg PO DAILY 09/19/17 09/19/17 History Atorvastatin [Lipitor] 20 mg PO HS 09/19/17 09/19/17 History Calcium Polycarbophil [Fibercon] 625 mg PO DAILY 09/19/17 09/19/17 History Losartan/Hydrochlorothiazide 0.5 tab PO DAILY 09/19/17 09/19/17 History [Losartan-Hctz 100-25 mg Tab] [place]-3 Fatty Acids/Fish Oil [Fish 1 cap PO DAILY 09/19/17 09/19/17 History Oil 1,000 mg Softgel] Omeprazole 20 mg PO DAILY 09/19/17 09/19/17 History traMADol HCL [Ultram] 50 mg PO Q6HR PRN 09/19/17 09/19/17 History Allergies Allergy/AdvReac Type Severity Reaction Status Date / Time No Known Allergies Allergy Verified 09/19/17 13:41 Physical Exam Vitals: Vital Signs Temp Pulse Resp BP Pulse Ox 09/22/17 11:05 97 F L 61 20 130/63 95 09/22/17 08:15 96.5 F L 65 20 149/72 96 09/22/17 03:23 97.2 F L 59 L 18 189/77 97 09/22/17 00:00 96.1 F L 53 L 18 164/73 97 09/21/17 20:00 97.3 F L 55 L 18 143/65 97 09/21/17 16:00 97.5 F L 60 18 197/82 95 09/21/17 11:47 97.5 F L 57 L 18 135/67 96 Intake and Output 09/21/17 09/22/17 09/22/17 22:59 06:59 14:59 Intake Total 240 Balance 240 Intake: Oral 240 Other: Voiding Method Toilet Toilet # Voids 1 1 Weight 82.5 kg Results 09/19/17 12:50 09/19/17 12:50 Current Medications Generic Name Dose Route Start Last Admin Trade Name Freq PRN Reason Stop Dose Admin Acetaminophen 1,000 mg 09/22/17 04:12 09/22/17 04:20 Tylenol Tab PO 1,000 mg Q6HR PRN Administration Mild Pain Aspirin 81 mg 09/20/17 09:00 09/22/17 11:08 Aspirin PO 81 mg DAILY LUCILA Administration Atenolol 100 mg 09/22/17 09:00 Tenormin PO DAILY [facility] Atorvastatin Calcium 40 mg 09/21/17 21:00 09/21/17 21:36 Lipitor PO 40 mg HS LUCILA Administration Calcium Polycarbophil 625 mg 09/20/17 09:00 09/21/17 08:40 Fibercon PO 625 mg DAILY LUCILA Administration Clopidogrel Bisulfate 75 mg 09/20/17 09:00 09/22/17 11:08 Plavix PO 75 mg DAILY LUCILA Administration HCTZ/Losartan Potassium 2 each 09/21/17 09:00 09/22/17 11:08 Hyzaar 50-12.5 PO 2 each DAILY LUCILA Administration Hydralazine HCl 10 mg 09/21/17 16:48 09/22/17 02:57 Apresoline IVP 10 mg Q6HR PRN Administration Blood Pressure - High Pantoprazole Sodium 40 mg 09/20/17 07:30 09/22/17 11:08 Protonix PO 40 mg [id number] LUCILA Administration Tramadol HCl 50 mg 09/19/17 15:37 09/19/17 20:28 Ultram PO 50 mg Q6HR PRN Administration Pain Intake and Output 09/21/17 09/22/17 09/22/17 22:59 06:59 14:59 Intake Total 240 Balance 240 Intake: Oral 240 Other: Voiding Method Toilet Toilet # Voids 1 1 Weight 82.5 kg 09/19/17 12:50 09/19/17 12:50
[2017-09-22] MEDS ORDERED: SODIUM CHLORIDE 0.9% 500 ML IV ONE (11:22)
--- NOTE | 2017-09-22 11:34 | P.CRDCN ---
History of Present Illness Consult date: 09/22/17 Requesting physician: Muna Sheridan Reason for Consult (text): CVA Chief complaint: Left arm weakness History of present illness: This is a pleasant 86-year-old female who follows regularly with Dr. Conner in the office. She has a known history of hypertension, hyperlipidemia, peripheral vascular disease, coronary artery disease with prior stent placement of the proximal LAD in 2011, basal cell skin cancer on the face, overall she states that she's been in her usual state of health until just prior to her presentation here. Patient presented to the hospital with symptoms of left arm weakness. According to the patient, she was just sitting in a chair, all of a sudden her left arm completely dropped like it was weak. She denies any dizziness or lightheadedness, no issues with her physician at all, no leg weakness. Her blood pressure on arrival here was 225/121, patient was given a dose of Catapres orally with improvement of her blood pressure and her home medications were resumed. CT of the brain did not show any acute intracranial hemorrhage or midline shift. Mild to moderate diffuse age-related cerebral atrophy and chronic small vessel ischemic change noted. Chest x-ray revealed no acute process. Carotid duplex study did reveal 70% stenosis in the right internal carotid artery and close to 50% in the left internal carotid artery. MRI of the brain was performed which revealed multifocal areas of evolving acute right sided frontal and parietal subcortical listener infarcts all measuring 5 mm or smaller in size on the background of moderate diffuse cerebral atrophy and chronic small vessel ischemic change. A cardiology consultation was requested for BETTE. Patient and her daughter were explained the BETTE procedure as well as the risks and the benefits. And they're in agreement to proceed. This will be performed today by Dr. Conner. 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 She denies any marijuana street drug use or alcohol use. - Past Family History Mother Family Medical History: Deep Vein Thrombosis (DVT) Additional Family Medical History / Comment(s): thrombophlebitis. Patient states that mother may have had a stroke in her 40s. Father Additional Family Medical History / Comment(s): Father was killed in mva Brother(s) Additional Family Medical History / Comment(s): Patient has 13 brothers and sisters and all have had diabetes. 2 of from diabetes complications. Patient has 2 daughters with no major medical problems. Medications and Allergies Home Medications Medication Instructions Recorded Confirmed Type Aspirin EC [Ecotrin Low Dose] 81 mg PO DAILY 09/19/17 09/19/17 History Atenolol [Tenormin] 50 mg PO DAILY 09/19/17 09/19/17 History Atorvastatin [Lipitor] 20 mg PO HS 09/19/17 09/19/17 History Calcium Polycarbophil [Fibercon] 625 mg PO DAILY 09/19/17 09/19/17 History Losartan/Hydrochlorothiazide 0.5 tab PO DAILY 09/19/17 09/19/17 History [Losartan-Hctz 100-25 mg Tab] [place]-3 Fatty Acids/Fish Oil [Fish 1 cap PO DAILY 09/19/17 09/19/17 History Oil 1,000 mg Softgel] Omeprazole 20 mg PO DAILY 09/19/17 09/19/17 History traMADol HCL [Ultram] 50 mg PO Q6HR PRN 09/19/17 09/19/17 History Allergies Allergy/AdvReac Type Severity Reaction Status Date / Time No Known Allergies Allergy Verified 09/19/17 13:41 Physical Exam Vitals: Vital Signs Temp Pulse Resp BP Pulse Ox 09/22/17 11:05 97 F L 61 20 130/63 95 09/22/17 08:15 96.5 F L 65 20 149/72 96 09/22/17 03:23 97.2 F L 59 L 18 189/77 97 09/22/17 00:00 96.1 F L 53 L 18 164/73 97 09/21/17 20:00 97.3 F L 55 L 18 143/65 97 09/21/17 16:00 97.5 F L 60 18 197/82 95 09/21/17 11:47 97.5 F L 57 L 18 135/67 96 Intake and Output 09/21/17 09/22/17 09/22/17 22:59 06:59 14:59 Intake Total 240 Balance 240 Intake: Oral 240 Other: Voiding Method Toilet Toilet # Voids 1 1 Weight 82.5 kg PHYSICAL EXAMINATION: GENERAL: 86-year-old female in no apparent distress at the time of my examination. HEENT: Head is atraumatic, normocephalic. Pupils equal, round. Sclera anicteric. Conjunctiva are clear. Mucous membranes of the mouth are moist. Neck is supple. There is no elevated jugular venous pressure.] bruit is heard. HEART EXAMINATION: Heart S1 and S2 systolic ejection murmur is heard. CHEST EXAMINATION: Lungs are clear to auscultation and precussion. No chest wall tenderness is noted on palpation or with deep breathing. ABDOMEN: Soft, nontender. Bowel sounds are heard. No organomegaly noted. EXTREMITIES: 2+ peripheral pulses with no evidence of peripheral edema and no calf tenderness noted. NEUROLOGIC patient is awake, alert and oriented -3. . Results 09/19/17 12:50 09/19/17 12:50 Current Medications Generic Name Dose Route Start Last Admin Trade Name Freq PRN Reason Stop Dose Admin Acetaminophen 1,000 mg 09/22/17 04:12 09/22/17 04:20 Tylenol Tab PO 1,000 mg Q6HR PRN Administration Mild Pain Aspirin 81 mg 09/20/17 09:00 09/22/17 11:08 Aspirin PO 81 mg DAILY LUCILA Administration Atenolol 100 mg 09/22/17 09:00 Tenormin PO DAILY LUCILA Atorvastatin Calcium 40 mg 09/21/17 21:00 09/21/17 21:36 Lipitor PO 40 mg HS LUCILA Administration Calcium Polycarbophil 625 mg 09/20/17 09:00 09/21/17 08:40 Fibercon PO 625 mg DAILY LUCILA Administration Clopidogrel Bisulfate 75 mg 09/20/17 09:00 09/22/17 11:08 Plavix PO 75 mg DAILY LUCILA Administration HCTZ/Losartan Potassium 2 each 09/21/17 09:00 09/22/17 11:08 Hyzaar 50-12.5 PO 2 each DAILY LUCILA Administration Hydralazine HCl 10 mg 09/21/17 16:48 09/22/17 02:57 Apresoline IVP 10 mg Q6HR PRN Administration Blood Pressure - High Pantoprazole Sodium 40 mg 09/20/17 07:30 09/22/17 11:08 Protonix PO 40 mg AC-BRKFST LUCILA Administration Tramadol HCl 50 mg 09/19/17 15:37 09/19/17 20:28 Ultram PO 50 mg Q6HR PRN Administration Pain Intake and Output 09/21/17 09/22/17 09/22/17 22:59 06:59 14:59 Intake Total 240 Balance 240 Intake: Oral 240 Other: Voiding Method Toilet Toilet # Voids 1 1 Weight 82.5 kg 09/19/17 12:50 09/19/17 12:50 EKG Interpretations (text) EKG shows a sinus bradycardia with no acute changes. Assessment and Plan Plan: Assessment and plan #1 acute evolving right sided frontal and parietal subcortical listener infarcts , ischemic CVA. #2 accelerated hypertension #3 hyperlipidemia #4 hypertension #5 coronary artery disease with prior LAD stenting 2011 #6 peripheral vascular disease #7 carotid artery disease, 70% on the right and 50% on the left Plan Patient had an echocardiogram with Doppler study performed which revealed an EF of greater than 70%. Patient will be scheduled today to undergo a transesophageal echocardiographic study by Dr. Conner, the risks and benefits were explained to the patient and her daughter in detail. Further recommendations to follow. DNP note has been reviewed, I agree with a documented findings and plan of care. Patient was seen and examined.
[2017-09-22] MEDS ORDERED: fentaNYL (PF) 50 MCG/ML 2 ML AMP IV ONE (11:45)
[2017-09-22] MEDS ORDERED: BENZOCAINE SPRAY 1 CAN MUCOUS MEM ONE (11:45)
[2017-09-22] MEDS ORDERED: MIDAZOLAM 2 MG/2 ML VIAL IV ONE ×2 (11:45→11:48)
[2017-09-22 11:46] VITALS: RESP 16
[2017-09-22] MEDS ORDERED: amLODIPine 5 MG TAB PO SCH ×2 (12:15→21:00)
[2017-09-22] MEDS ORDERED: SODIUM CHLORIDE 0.9% 1,000 ML IV SCH (12:15)
--- NOTE | 2017-09-22 12:21 | ECHOT ---
TRANSESOPHAGEAL ECHOCARDIOGRAM TRANSESOPHAGEAL ECHOCARDIOGRAM: INDICATION: Evaluation of intracardiac thrombus. PROCEDURE: After explaining the procedure to the patient, its risks and complication, blood pressure, heart rate, O2 saturation was monitored. The throat was sprayed with Cetacaine, she received 50 mcg intravenous fentanyl and 3 mg intravenous Versed. The probe was introduced into the esophagus without difficulty. Images were obtained. Following that, the probe was removed, there was no immediate complication. FINDINGS: Left atrial size is mildly dilated. The left atrial appendage is normal. Left ventricular size and systolic function normal. There was no segmental wall motion abnormality. The aortic valve revealed mild fibrocalcific changes of the aortic cusp with preserved opening. Mitral valve revealed mild prolapse of the posterior mitral valve leaflets. Tricuspid valve appears to be normal. Descending thoracic aorta appears to be normal. There was no shunting by contrast bubble study. No pericardial effusion was noted. Doppler pulse wave and color Doppler obtained, revealed mild mitral, aortic and tricuspid regurgitation. There was no shunting by color Doppler study. CONCLUSION: 1. Normal left ventricular size and systolic function. 2. Mildly dilated left atrium with normal appearance of left atrial appendage. 3. Normal appearance of the descending thoracic aorta. 4. Normal left ventricular size and systolic function. 5. Mild mitral, aortic and tricuspid regurgitation with mild prolapse of the posterior mitral valve leaflets. MMODL / IJN: [id number] /
[2017-09-22] MEDS: CALCIUM POLYCARBOPHIL 625 MG TAB PO SCH (13:11)
[2017-09-22 14:33] VITALS: BP 124/60; PULSE 55
--- NOTE | 2017-10-27 15:19 | P.DS ---
Providers Date of admission: 09/19/17 15:35 Expected date of discharge: 09/22/17 Attending physician: Muna Sheridan Consults: 09/19/17 15:36 Consult Physician Routine Consulting Provider: Adonay Wood Consult Reason/Comments: CVA Do you want consulting provider notified?: Yes 09/20/17 10:13 Consult Physician Routine Consulting Provider: Kumar Patricio Consult Reason/Comments: carotid stenosis Do you want consulting provider notified?: Yes Primary care physician: Jatin Mcnair [facility] Course: This is an 86-year-old female patient of Dr. 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 She denies having dizziness, lightheadedness , difficulty with her speech, weakness in her lower extremities. She denies any numbness in her left arm as well. She states that it just drops Patient presented to [facility] emergency center with the above complaints. Patient was hypertensive at 225/121. She was given a dose of Catapres 0.1 mg orally with improvement of her blood pressure and subsequent way resumed on her home medications. CT of the brain showed no acute intracranial hemorrhage or midline shift. Mild to moderate diffuse age-related cerebral atrophy and chronic small vessel ischemic change. Chest x-ray showed no acute process. Carotid duplex revealed 70% stenosis in the right internal carotid and close to 50% in the left internal carotid. Patient was resumed on her home medications, continued on baby aspirin and Plavix added, consult requested with neurology and patient admitted to the selective care unit. PT OT and speech therapies have been ordered. Subsequently, consult placed with Dr. Patricio for carotid stenosis. 09/21: Patient has been seen by physical therapy and occupational therapy. No plan for any further therapies. Echocardiogram reveals EF of greater than 70%, moderate concentric left hypertrophy, mild aortic regurgitation, mild mitral regurgitation, mild tricuspid regurgitation. Patient has been seen by Dr. Wood with recommendations for Plavix versus aspirin which patient has been on Lasix and was started by the ER. We are also increasing her Lipitor to 40 mg. Patient states she feels she has a little weakness in her left hand. Compounding And Finishing Supervisor appeared to be even at this time. MRI of the brain reveals multifocal areas of evolving acute right-sided frontal and parietal subcortical lacunar infarcts all measuring 5 mm or smaller in size on background of moderate diffuse cerebral atrophy and chronic small vessel ischemic change. Patient does not have any history of atrial fibrillation. Will add in consult for cardiology. Patient is currently on Plavix and baby aspirin. 09/22: Neurology has signed off the case and following on an as-needed basis. Cardiology has evaluated the patient and she underwent a BETTE today that was normal. Cardiology will arrange for halter monitor for home. Blood pressure medications have been adjusted today. She did have episode of high blood pressure this morning with headache and nausea which is subsequently been resolved. Patient will be discharged on Plavix only. Patient will be discharged home today in stable condition. Discharge diagnoses: 1. Acute evolving right-sided frontal and parietal subcortical lacunar infarcts , ischemic CVA. 2. Hypertensive urgency. 3. Carotid stenosis 70% on the right and 50% on the left. 4. Hyperlipidemia. 5. Gastroesophageal reflux disease and GI prophylaxis. 6. History of coronary artery disease status post cardiac stent, stable. 7. Chronic back pain. Discharge plan: home Impression and plan of care have been directed as dictated by the signing physician. Marlen Dillard nurse practitioner acting as scribe for signing physician. Patient Condition at Discharge: Good Plan - Discharge Summary Discharge Rx Participant: Yes New Discharge Prescriptions: New amLODIPine [Norvasc] 5 mg PO DAILY #30 tab Atorvastatin [Lipitor] 40 mg PO HS #30 tab Clopidogrel [Plavix] 75 mg PO DAILY #30 tab Continue traMADol HCL [Ultram] 50 mg PO Q6HR PRN PRN Reason: Pain Omeprazole 20 mg PO DAILY Calcium Polycarbophil [Fibercon] 625 mg PO DAILY [place]-3 Fatty Acids/Fish Oil [Fish Oil 1,000 mg Softgel] 1 cap PO DAILY Atenolol [Tenormin] 50 mg PO DAILY Changed Losartan/Hydrochlorothiazide [Losartan-Hctz 100-25 mg Tab] 1 tab PO DAILY # 30 tablet Discontinued Aspirin EC [Ecotrin Low Dose] 81 mg PO DAILY Atorvastatin [Lipitor] 20 mg PO HS Discharge Medication List Atenolol [Tenormin] 50 mg PO DAILY 09/19/17 [History] Calcium Polycarbophil [Fibercon] 625 mg PO DAILY 09/19/17 [History] [place]-3 Fatty Acids/Fish Oil [Fish Oil 1,000 mg Softgel] 1 cap PO DAILY [History] Omeprazole 20 mg PO DAILY 09/19/17 [History] traMADol HCL [Ultram] 50 mg PO Q6HR PRN 09/19/17 [History] Atorvastatin [Lipitor] 40 mg PO HS #30 tab 09/22/17 [Rx] Clopidogrel [Plavix] 75 mg PO DAILY #30 tab 09/22/17 [Rx] Losartan/Hydrochlorothiazide [Losartan-Hctz 100-25 mg Tab] 1 tab PO DAILY #30 tablet 09/22/17 [Rx] amLODIPine [Norvasc] 5 mg PO DAILY #30 tab 09/22/17 [Rx] Follow up Appointment(s)/Referral(s): Reid Conner MD [STAFF PHYSICIAN] - 09/30/17 1:30 pm (Tuesday at [facility]) Adonay Wood MD [STAFF PHYSICIAN] - 2 Weeks (Spoke to healthcare receptionist. Office will call with appointment time) Kumar Patricio MD [STAFF PHYSICIAN] - 10/19/17 10:30 am (Tuesday) Jatin Mcnair MD [Primary Care Provider] - 10/04/17 10:45 am (Tuesday -office is closed all of next week. No earlier appointment available.) Patient Instructions/Handouts: Stroke (DC) Activity/Diet/Wound Care/Special Instructions: Take norvasc at bedtime. Discharge Disposition: HOME SELF-CARE
== END 2017-09-22 15:40 | disposition home or self-care (01) | DRG 66 ==
LOC: EC 12:22 → 6SEL 15:35
PROVIDERS: ADMIT Internal Medicine; ATTEND Internal Medicine
PROC: B24BZZ4 Ultrasonography of Heart with Aorta, Transesophageal (ICD-10-PCS; principal; 2017-09-20)
PROC: B24BZZ4 Ultrasonography of Heart with Aorta, Transesophageal (ICD-10-PCS; 2017-09-22)
DX: I63.8 Other cerebral infarction (principal); G83.24 Monoplegia of upper limb affecting left nondominant side; R29.700 NIHSS score 0; E78.5 Hyperlipidemia, unspecified; G89.29 Other chronic pain; I10 Essential (primary) hypertension; I25.10 Atherosclerotic heart disease of native coronary artery without angina pectoris; I73.9 Peripheral vascular disease, unspecified; I65.23 Occlusion and stenosis of bilateral carotid arteries; K21.9 Gastro-esophageal reflux disease without esophagitis; M54.9 Dorsalgia, unspecified; K29.70 Gastritis, unspecified, without bleeding; Z79.02 Long term (current) use of antithrombotics/antiplatelets; Z79.82 Long term (current) use of aspirin; Z79.899 Other long term (current) drug therapy; Z85.828 Personal history of other malignant neoplasm of skin; Z95.5 Presence of coronary angioplasty implant and graft; Z87.440 Personal history of urinary (tract) infections; Z83.3 Family history of diabetes mellitus
CPT/HCPCS: 36415; 70450; 70553; 71046; 80053; 80061; 82550; 82553; 84484; 85025; 85610; 85730; 90732; 93005; 93306; 93312; 93320; 93325; 93880; 94760; 99285